=== PATIENT | female | born 1935 | race Two or more races ===

== ENCOUNTER 2023-11-15 13:56 | Emergency (ER) | payer OTHER ==
[~2023-11-15] VITALS: Ht 154.9 cm; Wt 59.0 kg
[2023-11-15] MEDS ORDERED: ZOCOR20 MG PO (15:05)
[2023-11-15] MEDS ORDERED: COZAAR100 MG PO (15:05)
[2023-11-15] MEDS ORDERED: BACTRIM DS TAB1 EACH PO (16:15)
[2023-11-15] MEDS ORDERED: CEFTRIAXONE SODIUM 1,000 MG VIAL IM ONE (16:15)
== END 2023-11-15 17:10 | disposition home or self-care (01) ==
LOC: ER 13:58
DX: N61.1 Abscess of the breast and nipple (principal); I10 Essential (primary) hypertension